=== PATIENT | female | born 1970 | race Caucasian/White ===

== ENCOUNTER 2017-03-12 09:39 | Emergency (ER) | payer OTHER | END 2017-03-12 10:27 | disposition home or self-care (01) | LOC: ER 09:39 | DX: S93.611A Sprain of tarsal ligament of right foot, initial encounter (principal); J44.9 Chronic obstructive pulmonary disease, unspecified; S93.621A Sprain of tarsometatarsal ligament of right foot, initial encounter; F17.210 Nicotine dependence, cigarettes, uncomplicated; Z79.899 Other long term (current) drug therapy; W19.XXXA Unspecified fall, initial encounter; Y92.009 Unspecified place in unspecified non-institutional (private) residence as the place of occurrence of the external cause ==